=== PATIENT | male | born 1950 | race Hispanic/Latino ===

== ENCOUNTER 2019-02-22 14:16 | Outpatient (CLI) | payer BC, MEDICARE ==
--- NOTE | 2019-02-23 15:32 | MRI ---
"PRELIMINARY REPORT" MRI CERVICAL SPINE WITHOUT CONTRAST: Multiplanar, multi sequential imaging of the cervical spine obtained. INDICATION: Neck pain. Left upper extremity pain. Laminoplasty in September. COMPARISON: No comparison studies available. FINDINGS: The cervical vertebrae maintain normal height and alignment. The disk spaces are maintained. There are postoperative changes seen posteriorly from C3 through C6. There are laminoplasty changes. Metallic devices are seen within the facet joints on the left at C3, C4, C5, and C6. These produce artifact. Mild disk bulge and spondylosis at C3-4 mildly flatten the thecal sac. The anterior subarachnoid space is preserved. There is left foraminal encroachment due to facet and uncinate hypertrophy. At C5-6, disk bulge and spondylosis flatten the thecal sac and mildly efface the anterior subarachnoid space. At C6-7, disk bulge and spondylosis efface the anterior subarachnoid space. No foraminal encroachment. Evaluation of the cervical cord reveals thinning of the cord at the C4-5 level. There is abnormal signal within the cord left of midline at this level suggesting myelomalacia. IMPRESSION: 1. Postoperative changes seen in the posterior cervical spine. There are metallic devices within the facet joints on the left from C3 through C6 producing artifact. CT cervical spine may be of benefit to better define the metallic hardware and bony structures. 2. There is thinning of the cord at C4-5 with abnormal cord signal seen to the left of midline suggesting myelomalacia with volume loss of the cord. 3. Spondylosis at C3-4, C4-5, and C5-6 and C6-7 as described above. Transcribed Date/Time: 02/23/2019 3:32 PM
--- NOTE | 2019-02-23 16:36 | RAD ---
Cervical spine 4 views HISTORY: Neck pain. FINDINGS: Vertebral body heights are maintained. Minimal degenerative retrolisthesis at the C3-4 leve l that does not change upon flexion or extension. Osteophytosis of the vertebral bodies and lower fac ets. Posterior fixation hardware on the left at the C3-4-5-6 levels. No perihardware lucency is appar ent. IMPRESSION: Postoperative and degenerative changes cervical spine as detailed above. No evidence of h ardware complication or acute osseous abnormality.
== END 2019-02-22 14:17 | disposition home or self-care (01) ==
LOC: SCSMRI 14:16
DX: G95.9 Disease of spinal cord, unspecified (principal); M47.812 Spondylosis without myelopathy or radiculopathy, cervical region; Z98.890 Other specified postprocedural states
CPT/HCPCS: 72040; 72050; 72141